=== PATIENT | female | born 1940 | race Caucasian/White ===

== ENCOUNTER 2019-01-25 09:52 | Emergency (ER) | payer MEDICARE, OTHER ==
[~2019-01-25] VITALS: Ht 165.1 cm; Wt 87.0 kg
[~2019-01-25 09:52] MED LIST: ASPI-903 PO; ATEN50TA PO; DICL100G37; ESOM40CA51 PO; FLUT16SP17 NASAL; HYDR25TA6 PO; HYDR30CR91; IBUP-1542 PO; LANS30CA PO; LIPA1CAP45 PO; LUBI24CA7 PO; MIRT15TA PO; RAMI10CA48 PO; TRIA15CR55
[2019-01-25 09:58] VITALS: Ht 165.1 cm; Wt 87.0 kg
[2019-01-25] MEDS ORDERED: ATEN-51 PO (11:22)
[2019-01-25] MEDS ORDERED: ASPI81TA52 PO (11:22)
[2019-01-25] MEDS ORDERED: HYDR25TA6 PO (11:23)
[2019-01-25] MEDS ORDERED: METF500T24 PO (11:23)
[2019-01-25] MEDS ORDERED: ENAL20TA PO (11:23)
[2019-01-25] MEDS ORDERED: TRAM50TA2 PO (12:24)
[2019-01-25] MEDS ORDERED: IBUP-1542 PO (12:24)
--- NOTE | 2019-01-25 12:27 | ERD ---
ER Documentation Chief Complaint Chief Complaint Right elbow pain, sweating HPI This is a 79-year-old female who is here because she has right elbow pain for the past 6 months that occurs off and on described as a burning pain is mostly occurring when she tries to be in the elbow when she is lifting a glass of water or trying to cook. No chest pain or shortness of breath diaphoresis jaw pain dizziness. She is also complaining of sweating a lot. She says she breaks out in a sweat multiple times a day for the past couple of years. She says she went to her doctor and they told her everything was fine. There is that her thyroid was normal. She is here because she wants to check some basic labs and specifically to check out her lungs for some reason. When asked about why she just shrugs her shoulders and says just to be sure ROS All systems reviewed and are negative except as per history of present illness. Medications Home Meds Active Scripts Tramadol HCl (Tramadol HCl) 50 Mg Tablet, 50 MG PO Q6, #20 TAB Prov:VICKIE FOLEY DO 01/25/19 Ibuprofen* (Motrin*) 600 Mg Tab, 600 MG PO Q8, #30 TAB Prov:VICKIE FOLEY DO 01/25/19 Reported Medications Enalapril Maleate* (Enalapril Maleate*) 20 Mg Tablet, 20 MG PO DAILY, TAB 01/25/19 Hydrochlorothiazide* (Hydrochlorothiazide*) 25 Mg Tab, 25 MG PO DAILY, #30 TAB 01/25/19 Metformin Hcl* (Metformin Hcl*) 500 Mg Tablet, 500 MG PO WITH BREAKFAST DINNE, #60 TAB 01/25/19 Atenolol* (Atenolol*) 25 Mg Tablet, 25 MG PO DAILY, #30 TAB 01/25/19 Aspirin (Low Dose Aspirin) 81 Mg Tablet.dr, 81 MG PO DAILY, #30 TAB 01/25/19 Discontinued Reported Medications Esomeprazole Magnesium (Esomeprazole Magnesium) 40 Mg Capsule., 40 MG PO DAILY 01/30/16 Wandco-Esibodjr-Gbyuzyt* (Shashi ROSAS* 36,000) 36,000 L-114,000-180,000 Unit Capsule., 1 CAP PO WITH MEALS, CAP 01/30/16 Lubiprostone* (Amitiza*) 24 Mcg Capsule, 24 MCG PO BID, #60 CAP 01/30/16 Mirtazapine* (Mirtazapine* ODT) 15 Mg/Udtablet Tab.rapdis, 15 MG PO QHS 01/30/16 Lansoprazole* (Lansoprazole*) 30 Mg Capsule.dr, 30 MG PO DAILY 01/30/16 Hydrocortisone* Rectal (Protozone-HC*) 30 Gm Cr, #30 01/30/16 Fluticasone Propionate* (Fluticasone Propionate* Nasal) 50 Mcg/[place] - 16 Gm [place].susp, 1 SPRAY NASAL DAILY, #1 BOTTLE TO EACH NOSTRIL 01/30/16 Diclofenac Sodium* (Voltaren* Gel) 1% -100 Gm Gel, #100 01/30/16 Ramipril (Ramipril) 10 Mg Capsule, 10 MG PO BID, CAP 01/30/16 Ibuprofen* (Ibuprofen*) 600 Mg Tablet, 600 MG PO BID PRN for PAIN 01/30/16 Hydrochlorothiazide* (Hydrochlorothiazide*) 25 Mg Tab, 25 MG PO DAILY 01/30/16 Triamcinolone Acetonide* (Kenalog*) 0.1%-15GM Cr, #80 01/30/16 Aspirin* (Aspirin* Chew) 81 Mg Tab.chew, 81 MG PO DAILY, TAB.CHEW 05/08/15 Atenolol* (Atenolol*) 50 Mg Tablet, 50 MG PO DAILY, TAB 08/26/14 Allergies Allergies: Coded Allergies: No Known Allergy (Unverified , 01/25/19) PMhx/Soc History of Surgery: Yes (CHOLECYSTECTOMY, LEFT HIP REPLACEMENT) Anesthesia Reaction: No Hx Neurological Disorder: No Hx Respiratory Disorders: No Hx Cardiac Disorders: Yes (HTN) Hx Psychiatric Problems: No Hx Miscellaneous Medical Probl: No (KIDNEY STONES) Hx Alcohol Use: No Hx Substance Use: No Hx Tobacco Use: No Smoking Status: Never smoker FmHx Family History: No coronary disease Physical Exam Vitals Vital Signs Date Temp Pulse Resp B/P (MAP) Pulse Ox O2 O2 Flow FiO2 Time Delivery Rate 01/25/19 98.6 60 18 142/62 99 09:58 (88) Physical Exam Const: Well-developed, well-nourished Head: Atraumatic, normocephalic Eyes: Normal Conjunctiva, PERRLA, EOMI, normal sclera, no nystagmus ENT: Normal External Ears, Nose and Mouth, moist mucus membranes. Neck: Full range of motion. No meningismus, no lymphadenopathy. Resp: Clear to auscultation bilaterally, no wheezing, rhonchi, rales Cardio: Regular rate and rhythm, no murmurs, S1 S2 present Abd: Soft, non tender x 4, non distended. Normal bowel sounds, no guarding or rebound, no pulsitile abdominal masses or bruits Skin: No petechiae or rashes, no ecchymosis , no maculopapular rash Back: No midline or flank tenderness Ext: No cyanosis, or edema, FROM x 4, normal inspection, neurovascularly intact x 4 Neur: Awake and alert, STR 5/5 x 4, sensation intact x 4, no focal findings, cerebellum intact Psych: Normal Mood and Affect Result Diagram: 01/25/19 1050 01/25/19 1050 Results 24 hrs Laboratory Tests Test 01/25/19 10:50 White Blood Count 7.9 10^3/ul Red Blood Count 4.62 10^6/ul Hemoglobin 13.8 g/dl Hematocrit 42.9 % Mean Corpuscular Volume 92.9 fl Mean Corpuscular Hemoglobin 29.9 pg Mean Corpuscular Hemoglobin Concent 32.2 g/dl Red Cell Distribution Width 12.6 % Platelet Count 174 10^3/UL Mean Platelet Volume 11.4 fl Immature Granulocytes % 0.600 % Neutrophils % 74.3 % Lymphocytes % 15.4 % Monocytes % 6.4 % Eosinophils % 2.7 % Basophils % 0.6 % Nucleated Red Blood Cells % 0.0 /100WBC Immature Granulocytes # 0.050 10^3/ul Neutrophils # 5.9 10^3/ul Lymphocytes # 1.2 10^3/ul Monocytes # 0.5 10^3/ul Eosinophils # 0.2 10^3/ul Basophils # 0.1 10^3/ul Nucleated Red Blood Cells # 0.0 10^3/ul Sodium Level 140 mmol/L Potassium Level 4.7 mmol/L Chloride Level 101 mmol/L Carbon Dioxide Level 26 mmol/L Anion Gap 13 Blood Urea Nitrogen 29 mg/dl Creatinine 1.19 mg/dl Est Glomerular Filtrat Rate mL/min mL/min Glucose Level 149 mg/dl Calcium Level 9.6 mg/dl Total Bilirubin 0.2 mg/dl Direct Bilirubin 0.00 mg/dl Indirect Bilirubin 0.2 mg/dl Aspartate Amino Transf (AST/SGOT) 27 IU/L Alanine Aminotransferase (ALT/SGPT) 30 IU/L Alkaline Phosphatase 54 IU/L Troponin I < 0.012 ng/ml Total Protein 7.5 g/dl Albumin 4.3 g/dl Globulin 3.20 g/dl Albumin/Globulin Ratio 1.34 Thyroid Stimulating Hormone (TSH) 2.420 MIU/L Free Thyroxine 1.23 ng/dl Procedures/MDM Ordering MD: VICKIE FOLEY DO Location: E/R Room/Bed: PROCEDURE: XR chest. CLINICAL INDICATION: Chest pain TECHNIQUE: A single portable view of the chest was obtained. COMPARISON: 06/06/2015 FINDINGS: The lungs are clear. There is no pleural effusion or pneumothorax. The cardiac and mediastinal contours are within normal limits. The aorta is atherosclerotic. IMPRESSION: 1. No acute pulmonary abnormality. RPTAT: AAEE Physician Curtis Date Time Electronically viewed and signed by Mariano Carrillo Physician on 01/25/2019 11:26 RF/ CC: VICKIE FOLEY DO [id number] MR #: [id number] DOS: 01/25/19 1036 Ordering MD: VICKIE FOLEY DO Location: E/R Room/Bed: PROCEDURE: XR right Elbow. CLINICAL INDICATION: Pain TECHNIQUE: AP, lateral and oblique views of the right elbow were obtained. COMPARISON: None. FINDINGS: There is no acute fracture or dislocation. The bones are demineralized. Joint spaces are maintained. There is normal bone mineralization and alignment. The soft tissues are unremarkable. IMPRESSION: 1. Unremarkable right elbow radiographs. RPTAT: AAEE Mariano Carrillo Physician Date Time Electronically viewed and signed by Mariano Carrillo Physician on 01/25/2019 11:30 RF/ CC: VICKIE FOLEY DO [id number] Patient's labs look good. No signs of arthritis on her x-rays she also has no signs of infection kidney or liver issues. The hyperhidrosis is uncertain at this time. 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
[2019-01-25 12:38] VITALS: BP 102/45; PULSE 59; RESP 20
== END 2019-01-25 12:41 | disposition home or self-care (01) ==
LOC: E/R 09:52
DX: M25.521 Pain in right elbow (principal); R61 Generalized hyperhidrosis; I10 Essential (primary) hypertension; Z79.82 Long term (current) use of aspirin; Z79.84 Long term (current) use of oral hypoglycemic drugs
CPT/HCPCS: 36415; 71045; 80053; 84439; 84443; 84484; 85025; 93005